=== PATIENT | female | born 1950 | race Caucasian/White ===

== ENCOUNTER 2023-11-11 23:12 | Emergency (ER) | payer MEDICARE ==
[~2023-11-11] VITALS: Ht 147.3 cm; Wt 75.0 kg
[~2023-11-11 23:12] MED LIST: ANAS1TAB10 PO; ASPI-611 PO; BISA-155 PO; CLOP75TA15 PO; CYAN100087 PO; DENO60DI SQ; EVOL140P3; GABA-532 PO; HYDR-4353 PO; LOSA25TA41 PO; METO50TA7 PO; PANT40SU2 PO
[2023-11-11 23:13] VITALS: TEMP 98.6
[2023-11-12 02:00] VITALS: PULSE 92; O2SAT 100
[2023-11-12] MEDS: acetaminophen 325mg tablet PO ONE (02:11)
[2023-11-12 03:00] VITALS: BP 126/60; RESP 16
== END 2023-11-12 05:37 | disposition home or self-care (01) ==
LOC: ER 23:13
DX: S82.092A Other fracture of left patella, initial encounter for closed fracture (principal); R51.9 Headache, unspecified; Z88.8 Allergy status to other drugs, medicaments and biological substances; Z79.82 Long term (current) use of aspirin; Z79.899 Other long term (current) drug therapy; W18.39XA Other fall on same level, initial encounter; Y93.89 Activity, other specified; Y92.89 Other specified places as the place of occurrence of the external cause; Y99.8 Other external cause status
CPT/HCPCS: 70450; 73564; 73590; 73610; 73700; 99285; J7030

== ENCOUNTER 2023-11-12 07:36 | Day surgery (SDC) | payer MEDICARE ==
[~2023-11-12] VITALS: Ht 147.3 cm; Wt 75.0 kg
[2023-11-12] MEDS ORDERED: normal saline 1,000 ML IV SCH (08:15)
[2023-11-12] MEDS ORDERED: diphenhydrAMINE 25mg capsule PO PRN (08:15)
[2023-11-12] MEDS ORDERED: sodium bicarbonate 1meq/ml syr 150 ML in dextrose 5%-water 1,000 ML IV SCH (08:15)
== END 2023-11-12 09:15 | disposition home or self-care (01) ==
LOC: SSTAY O 07:36
PROVIDERS: ATTEND Internal Medicine Cardiovascular Disease
DX: I25.118 Atherosclerotic heart disease of native coronary artery with other forms of angina pectoris (principal); Z53.8 Procedure and treatment not carried out for other reasons; I35.0 Nonrheumatic aortic (valve) stenosis; E78.5 Hyperlipidemia, unspecified; I10 Essential (primary) hypertension; C50.919 Malignant neoplasm of unspecified site of unspecified female breast; K21.9 Gastro-esophageal reflux disease without esophagitis; Z98.890 Other specified postprocedural states; Z79.899 Other long term (current) drug therapy; Z79.01 Long term (current) use of anticoagulants; Z88.8 Allergy status to other drugs, medicaments and biological substances; Z90.710 Acquired absence of both cervix and uterus
CPT/HCPCS: J7030

== ENCOUNTER 2023-11-29 07:59 | Day surgery (SDC) | payer MEDICARE ==
[2023-11-29] VITALS (11 sets, daily range): BP systolic 125–178; BP diastolic 45–91; PULSE 74–86; RESP 10–18; TEMP 98.2; O2SAT 94–99
[~2023-11-29] VITALS: Ht 147.3 cm; Wt 76.1 kg
[2023-11-29] MEDS ORDERED: diphenhydrAMINE 25mg capsule PO PRN (08:45)
[2023-11-29 09:29] LABS: BASOPHILS # (AUTO) 0.1 X10'3 (0-0.2); BASOPHILS % (AUTO) 0.5 % (0-1); EOSINOPHILS # (AUTO) 0.3 X10'3 (0-0.9); EOSINOPHILS % (AUTO) 3.1 % (0-6); HEMATOCRIT 36.6 % (35.0-45.0); HEMOGLOBIN 11.9 g/dl (12.0-16.0); LYMPHOCYTES # (AUTO) 1.6 X10'3 (1.1-4.8); LYMPHOCYTES % (AUTO) 16.9 % (21-51); MEAN CORPUSCULAR HEMOGLOBIN 28.7 PG (27.0-31.0); MEAN CORPUSCULAR HGB CONC 32.5 g/dL (33.0-36.5); MEAN CORPUSCULAR VOLUME 88.2 FL (78-98); MEAN PLATELET VOLUME 9.1 FL (7.4-10.4); MONOCYTES # (AUTO) 0.7 X10'3 (0-0.9); MONOCYTES % (AUTO) 7.3 % (2-12); NEUTROPHILS # (AUTO) 6.9 X10'3 (1.8-7.7); NEUTROPHILS % (AUTO) 72.2 % (42-75); PLATELET COUNT 342 X10'3 (140-440); RED BLOOD COUNT 4.14 X10'6 (4.20-5.60); RED CELL DISTRIBUTION WIDTH 14.7 % (11.5-14.5); WHITE BLOOD COUNT 9.6 X10'3 (4.5-11.0)
[2023-11-29 09:32] LABS: ALBUMIN 3.7 G/DL (3.4-5.0); ANION GAP 11 (8-16); BLOOD UREA NITROGEN 20 MG/DL (7-18); BUN/CREATININE RATIO 17.1 (10.0-20.0); CALCIUM 9.5 MG/DL (8.5-10.1); CHLORIDE 104 MMOL/L (99-107); CREATININE 1.17 MG/DL (0.40-0.90); GLUCOSE 117 MG/DL (70-104); MAGNESIUM 1.9 MG/DL (1.5-2.4); POTASSIUM 3.7 MMOL/L (3.5-5.1); PROTHROMBIN TIME 10.3 SECONDS (9.0-12.0); SODIUM 142 MMOL/L (135-145); TOTAL CARBON DIOXIDE 27.5 MMOL/L (24-32); eCRCL 27 ML/MIN; eGFR 45 ML/MIN
[2023-11-29] MEDS: hydrocortisone sod succ/PF 100mg/2ml inj. IV STA (09:57)
[2023-11-29] MEDS: LORazepam 0.5 MG tablet PO PRN (09:57)
[2023-11-29] MEDS: normal saline 1,000 ML IV SCH (09:59)
[2023-11-29] MEDS ORDERED: heparin 1,000unit/ml 10ml vial 10 ML ONE (10:22)
[2023-11-29] MEDS ORDERED: iohexol 350MG/ML 100ml bottle IV ONE ×2 (10:22→11:47)
[2023-11-29] MEDS ORDERED: fentaNYL/PF 50MCG/1 ML 2ML syringe ONE (10:22)
[2023-11-29] MEDS ORDERED: midazolam 1 mg/ML 2ml injection ONE ×3 (10:22→11:50)
[2023-11-29] MEDS ORDERED: verapamil 2.5 mg/ml inj IV ONE (10:22)
[2023-11-29] MEDS ORDERED: LIDOcaine 1% (10mg/ml) 2ml vial ONE (10:22)
[2023-11-29] MEDS ORDERED: iohexol 350 MG/ML 50ML vial IV ONE ×2 (10:22→11:33)
[2023-11-29] MEDS ORDERED: nitroGLYCERIN 500mcg/5mL D5W 0 ML IV ONE (10:23)
[2023-11-29] MEDS ORDERED: LIDOcaine 1% 30ml preserv. free vial ONE (10:23)
[2023-11-29] MEDS ORDERED: VITA1CAP PO (10:26)
[2023-11-29] MEDS ORDERED: ZOLE5INF7 IV (10:26)
[2023-11-29] MEDS ORDERED: LYR25C PO (10:26)
[2023-11-29] MEDS ORDERED: CHOL100046 PO (10:26)
[2023-11-29] MEDS ORDERED: NITR0.4T51 SL (10:26)
[2023-11-29] MEDS ORDERED: ATOR-2 PO (10:26)
[2023-11-29] MEDS ORDERED: CYAN100082 PO (10:26)
[2023-11-29] MEDS ORDERED: nitroGLYCERIN 500mcg/5mL D5W 5 ML IV ONE (11:52)
[2023-11-29] MEDS ORDERED: clopidogrel 300mg tablet ONE (12:22)
[2023-11-29] MEDS ORDERED: ondansetron/PF 4mg/2ml inj IV PRN (13:05)
[2023-11-29] MEDS: sodium bicarbonate 1meq/ml syr 150 ML in dextrose 5%-water 1,000 ML IV ONE (13:39)
[2023-11-29] MEDS: sucralfate 1 gm tablet PO ONE (13:56)
[2023-11-29] MEDS ORDERED: CLOP-32 PO (14:45)
== END 2023-11-29 16:00 | disposition home or self-care (01) ==
LOC: SSTAY O 07:59
PROVIDERS: ATTEND Internal Medicine Cardiovascular Disease
DX: I25.118 Atherosclerotic heart disease of native coronary artery with other forms of angina pectoris (principal); I10 Essential (primary) hypertension; E78.5 Hyperlipidemia, unspecified; K21.9 Gastro-esophageal reflux disease without esophagitis; Z86.73 Personal history of transient ischemic attack (TIA), and cerebral infarction without residual deficits; Z79.82 Long term (current) use of aspirin; Z79.899 Other long term (current) drug therapy; Z90.49 Acquired absence of other specified parts of digestive tract; Z90.89 Acquired absence of other organs; Z90.710 Acquired absence of both cervix and uterus; Z95.1 Presence of aortocoronary bypass graft; Z95.5 Presence of coronary angioplasty implant and graft; Z98.891 History of uterine scar from previous surgery; Z98.890 Other specified postprocedural states; Z88.8 Allergy status to other drugs, medicaments and biological substances
CPT/HCPCS: 36415; 80048; 83735; 85025; 85610; 92920; 93005; 93461; 99152; 99153; A6258; C1725; C1751; C1769; C1874; C1894; C9600; J1644; J1720; J2001; J2250; J3010; J3490; J7030; J7070; Q9967; Z7610

== ENCOUNTER 2024-09-18 07:43 | Day surgery (SDC) | payer MEDICARE ==
[~2024-09-18] VITALS: Ht 144.8 cm; Wt 70.3 kg
[2024-09-18] VITALS (12 sets, daily range): BP systolic 132–178; BP diastolic 49–79; PULSE 72–79; RESP 14–17; TEMP 98.8; O2SAT 91–97
[~2024-09-18 07:43] MED LIST changes: +ATOR-2 PO; +CHOL100046 PO; +CYAN100082 PO; -CYAN100087 PO; -DENO60DI SQ; -GABA-532 PO; -HYDR-4353 PO; +LYR25C PO; +NITR0.4T51 SL; +VITA1CAP PO; +ZOLE5INF7 IV
--- NOTE | 2024-09-18 08:12 | ELECTROCARDIOGRAPH REPORT ---
[facility] Test Date: 2024-09-18 Test Time: 08:10:02 Pat Name: AWAIS MICHELE Department: [facility] O Patient ID: [facility]-[id number] Room: Gender: F Committee Member: KONG : 1950 Requested By: MARITA SEVILLA Order Number: [id number] Reading MD: Dr. TYLOR Benjamin Measurements Intervals [place] Rate: 75 P: 48 DC: 145 QRS: -13 QRSD: 92 T: 139 QT: 407 QTc: 455 Interpretive Statements Sinus rhythm Probable left atrial enlargement LVH with secondary repolarization abnormality Electronically Signed On 09-18-2024 13:18:[address] TYLOR Benjamin Please click the below link to view image of tracing.
[2024-09-18 08:43] LABS: BASOPHILS # (AUTO) 0.1 X10'3 (0-0.2); BASOPHILS % (AUTO) 0.7 % (0-1); EOSINOPHILS # (AUTO) 0.1 X10'3 (0-0.9); EOSINOPHILS % (AUTO) 1.5 % (0-6); HEMATOCRIT 31.2 % (35.0-45.0); HEMOGLOBIN 10.4 g/dl (12.0-16.0); LYMPHOCYTES % (AUTO) 10.4 % (21-51); MEAN CORPUSCULAR HEMOGLOBIN 28.3 PG (27.0-31.0); MEAN CORPUSCULAR HGB CONC 33.2 g/dL (33.0-36.5); MEAN CORPUSCULAR VOLUME 85.3 FL (78-98); MEAN PLATELET VOLUME 9.2 FL (7.4-10.4); MONOCYTES # (AUTO) 0.7 X10'3 (0-0.9); MONOCYTES % (AUTO) 7.5 % (2-12); NEUTROPHILS # (AUTO) 7.8 X10'3 (1.8-7.7); NEUTROPHILS % (AUTO) 79.9 % (42-75); PLATELET COUNT 216 X10'3 (140-440); RED BLOOD COUNT 3.66 X10'6 (4.20-5.60); RED CELL DISTRIBUTION WIDTH 15.5 % (11.5-14.5); WHITE BLOOD COUNT 9.8 X10'3 (4.5-11.0)
[2024-09-18 08:55] LABS: ALBUMIN 2.9 G/DL (3.4-5.0); ANION GAP 8 (8-16); BLOOD UREA NITROGEN 12 MG/DL (7-18); BUN/CREATININE RATIO 15.2 (10.0-20.0); CALCIUM 8.3 MG/DL (8.5-10.1); CHLORIDE 106 MMOL/L (99-107); CREATININE 0.79 MG/DL (0.40-0.90); GLUCOSE 116 MG/DL (70-104); MAGNESIUM 1.7 MG/DL (1.5-2.4); POTASSIUM 3.6 MMOL/L (3.5-5.1); SODIUM 143 MMOL/L (135-145); TOTAL CARBON DIOXIDE 29.2 MMOL/L (24-32); eCRCL 37 ML/MIN; eGFR 71 ML/MIN
[2024-09-18 08:57] LABS: PROTHROMBIN TIME 10.3 SECONDS (9.0-12.0)
[2024-09-18] MEDS ORDERED: LYR75C PO (08:59)
[2024-09-18] MEDS ORDERED: METO-539 PO (08:59)
[2024-09-18] MEDS: normal saline 1,000 ML IV SCH (09:25)
[2024-09-18] MEDS: diphenhydrAMINE 25mg capsule PO PRN (09:25)
[2024-09-18] MEDS: sodium bicarbonate 1meq/ml syr 150 ML in dextrose 5%-water 1,000 ML IV ONE (09:28)
[2024-09-18] MEDS ORDERED: iohexol 350MG/ML 100ml bottle IV ONE (11:12)
[2024-09-18] MEDS ORDERED: LIDOcaine 1% 30ml preserv. free vial ONE (11:12)
[2024-09-18] MEDS ORDERED: heparin 1,000unit/ml 10ml vial 10 ML ONE (11:12)
[2024-09-18] MEDS ORDERED: midazolam 1 mg/ML 2ml injection ONE ×2 (11:12→11:41)
[2024-09-18] MEDS ORDERED: fentaNYL/PF 50MCG/1 ML 2ML syringe ONE (11:12)
[2024-09-18] MEDS ORDERED: iohexol 350 MG/ML 50ML vial IV ONE (11:12)
[2024-09-18] MEDS ORDERED: ondansetron/PF 4mg/2ml inj IV PRN (13:25)
[2024-09-18] MEDS ORDERED: HYDROcodone/acetaminophen 5mg/325mg tablet PO PRN (13:25)
[2024-09-18] MEDS ORDERED: HYDROcodone/acetaminophen 10/325mg tab PO PRN (13:25)
--- NOTE | 2024-09-18 14:50 | CARDIOLOGY REPORT ---
DATE OF SERVICE: 09/18/2024 DICTATING PHYSICIAN: LEVON ALICEA DO CARDIAC CATHETERIZATION REPORT REFERRING PHYSICIAN: Cee Elkins MD CLINICAL HISTORY: This 74-year-old woman has known severe aortic stenosis. There is also a significant history for coronary disease with previous bypass grafting and coronary stenting. PROCEDURES PERFORMED: * Right heart catheterization. * Left heart catheterization. * Left ventriculography. * Selective coronary arteriography. * Percutaneous arteriotomy closure (Mynx). * 45 minutes conscious sedation supervision. DESCRIPTION OF THE PROCEDURE: The patient was sedated with fentanyl and Versed. She was then prepared and draped in the usual manner. The right inguinal area was infiltrated with 1% lidocaine using a micropuncture set and a Seldinger technique. A 7-Palauan sheath was placed in the common femoral artery. 3000 units of heparin were given. Right heart catheterization was performed using a 7.5-Palauan [place] catheter. Cardiac output was determined using a thermodilution technique. Left heart catheterization and left ventriculography were performed using a double-lumen Justin catheter. Coronary arteriography was performed using 6-Palauan #4 Codey catheters. Opacification of a saphenous vein graft was accomplished using a 6-Palauan LCB catheter. A left internal mammary artery catheter was opacified using the 6-Palauan right Codey catheter. RESULTS: HEMODYNAMIC DATA: The mean right atrial pressure was 10 mmHg. Right ventricular pressure was 52/6 mmHg. Pulmonary arterial pressure was 49/21 mmHg. Pulmonary capillary wedge pressure was 21 mmHg. Left ventricular end diastolic pressure was 22 mmHg. There was a 50 mm gradient across the aortic valve. Cardiac output by thermodilution technique was 5.1 L/min. The short-form calculated aortic valve area was 0.72 cm2. LEFT VENTRICULOGRAM: The left ventriculogram was technically satisfactory. The estimated ejection fraction was 50%. Stents were visible in the proximal and distal right coronary, in the proximal half of the circumflex coronary, and proximally within the LAD. LEFT CORONARY ARTERY: The left main was a large unobstructed vessel, bifurcating into the left anterior descending and circumflex coronary arteries. The LAD was stented proximally. At its ostium, there was a 99% stenosis and the vessel was totally occluded just after the end of the stent. There was also about a 75% in-stent area of restenosis in the circumflex, which was otherwise composed of a medium to large obtuse marginal branch, a medium to large first posterolateral, and a very small-caliber second posterolateral. RIGHT CORONARY ARTERY: The right coronary was a medium to large main stem vessel. There was a long, medium-sized posterior descending branch and a hjxpfe-hx-wjvye posterolateral branch. The origin of the posterior descending was narrowed by about 95% and there was at least 50% narrowing of the ongoing right coronary. The mid right coronary also contained a 40% area of stenosis. There is a patent sequential PRATT graft running between the mid LAD and what is either a very pruned diagonal or perhaps an intermediate artery. There is a patent, smooth-appearing saphenous vein graft leading to what looks like a diagonal of the LAD which was small in caliber, but there was a larger medium-sized diagonal retrogradely filled. CONCLUSIONS: * Severe aortic stenosis. There is a 50 mm ubvs-cs-mhnk gradient and an estimated valve area of 0.72 cm2. * Moderate pulmonary hypertension. Pulmonary arterial pressure was 49/21 mmHg. * Severe coronary artery disease, principally manifested as follows: A. 99% in-stent stenosis at the ostium of the LAD with a 100% occlusion of the mid vessel. B. At least 75% in-stent stenosis at the origin of the circumflex coronary artery. C. 90%-95% stenosis at the origin of the RCA PDA with at least a 40%-50% narrowing of the ongoing right coronary. * Patent sequential internal mammary graft to the mid LAD and a very pruned diagonal or intermediate artery. There is also a patent unobstructed saphenous vein graft to a diagonal of the LAD. * Left ventricular function was nearly normal. The ejection fraction was estimated to be about 50%. PLAN: Discussion about whether to proceed to evaluation of coronary ischemia with a myocardial perfusion study to decide whether or not this patient will have surgery or TAVR with followup PCI. LEVON ALICEA DO TID: [id number] RECEIPT: [id number] ЮЛИЯ LANDA
== END 2024-09-18 15:50 | disposition home or self-care (01) ==
LOC: SSTAY O 07:43
PROVIDERS: ATTEND Internal Medicine Cardiovascular Disease
DX: I25.118 Atherosclerotic heart disease of native coronary artery with other forms of angina pectoris (principal); I27.20 Pulmonary hypertension, unspecified; I35.0 Nonrheumatic aortic (valve) stenosis; I25.2 Old myocardial infarction; E78.5 Hyperlipidemia, unspecified; K21.9 Gastro-esophageal reflux disease without esophagitis; C50.919 Malignant neoplasm of unspecified site of unspecified female breast; I25.10 Atherosclerotic heart disease of native coronary artery without angina pectoris; Z95.5 Presence of coronary angioplasty implant and graft; I10 Essential (primary) hypertension; Z90.710 Acquired absence of both cervix and uterus; Z98.890 Other specified postprocedural states; Z90.49 Acquired absence of other specified parts of digestive tract; Z79.899 Other long term (current) drug therapy
CPT/HCPCS: 36415; 80048; 83735; 85025; 85610; 93005; 93461; 99152; 99153; A6258; C1725; C1751; C1769; C1887; C1894; J1644; J2003; J2250; J3010; J3490; J7030; J7070; Q0163; Q9967; Z7610

== ENCOUNTER 2024-10-26 05:58 | Inpatient (IN) | payer MEDICARE ==
--- NOTE | 2024-10-20 11:52 | ELECTROCARDIOGRAPH REPORT ---
[facility] Test Date: 2024-10-20 Test Time: 11:48:19 Pat Name: AWAIS MICHELE Department: PRE/OP CARDIOLOGY Room: Gender: F Coder Operator: MAGDI : 1950 Requested By: CHRIS CHAN Order Number: [id number] Reading MD: Dr. Percy Bell Measurements Intervals [place] Rate: 76 P: 66 [place]: 150 QRS: -2 QRSD: 97 T: 157 QT: 384 QTc: 432 Interpretive Statements Sinus rhythm LVH with secondary repolarization abnormality Electronically Signed On 10-23-2024 20:51:[address] Percy Bell Please click the below link to view image of tracing.
[2024-10-20 12:23] LABS: BILIRUBIN,URINE SMALL (Neg); CLARITY,URINE CLEAR (Clear); COLOR,URINE YELLOW (Yellow); GLUCOSE, URINE NEGATIVE (Neg); KETONES,URINE NEGATIVE (Neg); LEUKOCYTE ESTERASE ,URINE NEGATIVE (Neg); NITRITES, URINE NEGATIVE (Neg); OCCULT BLOOD,URINE NEGATIVE (Neg); PH,URINE 5.5 (4.8-8.0); PROTEIN,URINE NEGATIVE (Neg); UROBILINOGEN,URINE 0.2 E.U/dL (0.2-1.0)
[2024-10-20 12:25] LABS: UA COLLECTION TYPE CLN CATCH MIDSTREAM
[2024-10-20 12:50] LABS: BASOPHILS % (AUTO) 0.8 % (0-1); EOSINOPHILS # (AUTO) 0.4 X10'3 (0-0.9); LYMPHOCYTES # (AUTO) 1.1 X10'3 (1.1-4.8); LYMPHOCYTES % (AUTO) 17.4 % (21-51); MEAN CORPUSCULAR HEMOGLOBIN 28.6 PG (27.0-31.0); MEAN CORPUSCULAR HGB CONC 33.4 g/dL (33.0-36.5); MEAN CORPUSCULAR VOLUME 85.4 FL (78-98); MEAN PLATELET VOLUME 9.1 FL (7.4-10.4); MONOCYTES # (AUTO) 0.8 X10'3 (0-0.9); MONOCYTES % (AUTO) 12.9 % (2-12); NEUTROPHILS # (AUTO) 3.8 X10'3 (1.8-7.7); NEUTROPHILS % (AUTO) 61.9 % (42-75); PRE OP PLATELET COUNT 261 X10'3 (140-440); PRE OP WHITE BLOOD COUNT 6.2 10'3 (4.8-10.8); RED BLOOD COUNT 3.63 X10'6 (4.20-5.60); RED CELL DISTRIBUTION WIDTH 15.6 % (11.5-14.5)
[2024-10-20 12:55] LABS: PRE OP HEMOGLOBIN 10.4 g/dL (12.0-16.0)
[2024-10-20 13:02] LABS: PRE OP PROTIME 10.3 SECONDS (9.0-12.0)
[2024-10-20 13:12] LABS: ALBUMIN 3.2 G/DL (3.4-5.0); ALBUMIN/GLOBULIN RATIO 0.8 (1.1-1.5); ALKALINE PHOSPHATASE 93 IU/L (46-116); BLOOD UREA NITROGEN 13 MG/DL (7-18); BUN/CREATININE RATIO 12.3 (10.0-20.0); CALCIUM 8.7 MG/DL (8.5-10.1); CHLORIDE 106 MMOL/L (99-107); CREATININE 1.06 MG/DL (0.40-0.90); PRE OP ALT 42 U/L (30-65); PRE OP ANION GAP 9 (8-16); PRE OP AST 43 U/L (10-37); PRE OP BILIRUB, TOTAL 0.6 MG/DL (0.0-1.0); PRE OP GLUCOSE 86 MG/DL (70-104); PRE OP SODIUM 143 MMOL/L (135-145); PRO BRAIN NATRIURETIC PEPTIDE 2963 PG/ML (0-450); TOTAL CARBON DIOXIDE 28.4 MMOL/L (24-32); eGFR 51 ML/MIN
[2024-10-20 13:18] LABS: PRE OP POTASSIUM 3.3 MMOL/L (3.4-5.1)
[2024-10-26] VITALS (33 sets, daily range): BP systolic 90–150; BP diastolic 32–70; PULSE 67–95; RESP 9–20; TEMP 96.8–97.9; O2SAT 91–100
[~2024-10-26] VITALS: Ht 144.8 cm; Wt 65.9 kg
[2024-10-26] MEDS: aspirin 325mg tablet PO ONE (05:30)
[~2024-10-26 05:58] MED LIST changes: +ALEN35TA11 PO; -ANAS1TAB10 PO; -BISA-155 PO; +DOCU-171 PO; -EVOL140P3; +EVOL140P3 SQ; -LOSA25TA41 PO; -LYR25C PO; +LYR75C PO; -METO50TA7 PO; +OSC500T PO; +PANT-47 PO; -PANT40SU2 PO; +PYRI-3 PO; -VITA1CAP PO; -ZOLE5INF7 IV; +famotidine 20mg tablet PO ONE; +ondansetron/PF 4mg/2ml inj IV PRN
[2024-10-26] MEDS ORDERED: protamine sulfate 10mg/ml inj. ONE (06:23)
[2024-10-26] MEDS: ringers solution, lacted 1,000 ML IV SCH ×2 (07:10→07:57)
[2024-10-26] MEDS ORDERED: labetalol 20mg/4ml (5mg/ml) syringe IV PRN ×2 (07:10→10:20)
[2024-10-26] MEDS ORDERED: fentaNYL/PF 50MCG/1 ML 2ML syringe IV PRN ×2 (07:10)
[2024-10-26] MEDS ORDERED: hydrALAZINE 20mg/ml inj. IV PRN ×2 (07:10→10:20)
[2024-10-26] MEDS ORDERED: ondansetron/PF 4mg/2ml inj IV PRN ×2 (07:10→10:20)
[2024-10-26] MEDS ORDERED: morphine 4 MG/ML inj SYRINge IV PRN (07:10)
[2024-10-26] MEDS ORDERED: morphine 2 MG/ML inj. syringe IV PRN (07:10)
[2024-10-26 07:46] LABS: ISTAT CREATININE 1.3 mg/dL (0.6-1.1); ISTAT HGB 10.5 g/dl (12.0-16.0); ISTAT IONIZED CALCIUM 1.25 mmol/L (1.03-1.32); ISTAT K 4.4 mmol/L (3.5-5.1)
[2024-10-26] MEDS: VANCOMYCIN 1GM 200ML H20 (PEG) 200 ML IV ONE (07:57)
[2024-10-26] MEDS: ceFAZolin 2gm/dext,iso 50mL 50 ML IV ONE (07:57)
[2024-10-26] MEDS: phenylephrine inj 50 MG in normal saline 250ml IV solN IV SCH (07:57)
[2024-10-26] MEDS: nitroPRUSSIDE (NIPRIDE) (200MCG/ML) 100ML Drip IV SCH (07:57)
[2024-10-26] MEDS ORDERED: iohexol 350MG/ML 100ml bottle IV ONE (08:18)
[2024-10-26] MEDS ORDERED: heparin 1,000 UNITS/NS 500ml 1,500 ML ONE (08:18)
[2024-10-26] MEDS ORDERED: LIDOcaine 1% 30ml preserv. free vial ONE (08:18)
[2024-10-26] MEDS ORDERED: nitroGLYCERIN 0.4mg SUBLingual tab SL PRN (08:45)
[2024-10-26] MEDS ORDERED: fentaNYL/PF 50MCG/1 ML 2ML syringe ONE (09:08)
[2024-10-26] MEDS ORDERED: MIDAZolam 1 MG/ML 5ML VIAL ONE ×2 (09:10→09:38)
[2024-10-26] MEDS ORDERED: labetalol 20mg/4ml (5mg/ml) syringe IV ONE (09:11)
[2024-10-26] MEDS ORDERED: heparin 1,000unit/ml 10ml vial 10 ML ONE (09:11)
[2024-10-26] MEDS ORDERED: iohexol 350 MG/ML 50ML vial IV ONE (09:28)
[2024-10-26] MEDS ORDERED: proCHLORperazine 10 MG/2 ml inj IV PRN (10:20)
[2024-10-26] MEDS ORDERED: potassium Cl 40MEQ/1/2NS 520ml 520 ML IV PRN (10:20)
[2024-10-26] MEDS ORDERED: potassium Cl 20mEq/100mL bag 100 ML IV PRN (10:20)
[2024-10-26] MEDS ORDERED: magnesium sulf-water 4G/100mL 100 ML IV PRN (10:20)
[2024-10-26] MEDS ORDERED: pantoprazole 40mg Tablet.DR PO PRN (10:20)
[2024-10-26] MEDS ORDERED: magnesium sulf-water 2g/50mL 50 ML IV PRN (10:20)
[2024-10-26] MEDS: normal saline 1000ml 1,000 ML IV SCH (10:20)
[2024-10-26] MEDS ORDERED: acetaminophen 325mg tablet PO PRN (10:20)
[2024-10-26] MEDS ORDERED: ALPRAZolam 0.25mg tablet PO PRN (10:20)
[2024-10-26] MEDS ORDERED: potassium CL 10mEq/100ml bag 100 ML IV PRN (10:20)
[2024-10-26] MEDS ORDERED: diphenhydrAMINE 25mg capsule PO PRN (10:20)
[2024-10-26] MEDS ORDERED: potassium Cl 40MEQ/270ML bag 250 ML IV PRN (10:20)
[2024-10-26] MEDS ORDERED: docusate sod 100mg capsule PO PRN (10:20)
[2024-10-26] MEDS ORDERED: potassium Cl 20 mEq SR tablet PO PRN (10:20)
--- NOTE | 2024-10-26 10:25 | OPERATIVE REPORT ---
Operative Report Providers to CC CC: Cee Elkins MD ~ Date of Procedure: Oct 26, 2024 Pre-Operative Diagnosis: Severe Aortic Stenosis Post-Operative Diagnosis SAME as PRE-Op Procedure Performed 1. Ultrasound-guided access, bilateral femoral vessels. 2. Bilateral femoral angiography. 3. Ascending aortography. 4. Temporary transvenous pacer to the RV apex. 5. Balloon Aortic Valvuloplasty with a 22mm balloon 6. Placement of a 26 mm Valentine S3 Ultra valve. Surgeon: Marita Bell MD Analytical Tech MD Dr. Rodney Martinez MD Anesthesiologist: Feroz Chung Type of Anesthesia: Other Findings: Severe Aortic Stenosis Complications None Prosthetics\Implants used: Valentine 26mm S3 Resilia Estimated Blood Loss: Minimal Specimen Removed: None Description of Procedure: The patient was brought to the laborer in a fasting state. They underwent MAC associated anesthesia. Ultrasound was used to guide access to the bilateral femoral vessels, 7-Palauan sheath, right femoral artery, 6-Palauan sheath, left femoral artery and right femoral vein. Bilateral femoral angiograms were obtained. Heparin was given to maintain an ACT over 250 seconds. A single perclose was placed on the left. We upsized to an 8-Palauan sheath. Two pigtail catheters placed in the ascending aorta. Ascending aortography done to determine the angle of deployment. Temporary transvenous pacer to the RV apex and confirmed capture. We upsized an 8-Palauan sheath to a 14-Palauan Valentine eSheath on the left. We crossed the aortic valve using a straight stiff exchange length Terumo wire supported by a 6-Palauan AL1 catheter. LV AO pressures were recorded. A Cook extra support wire was placed in the left ventricle. A 22mm balloon was brought into position and under rapid ventricular pacing was deployed. Subsequently, a 26 mm Valentine S3 Ultra valve was brought to position and under rapid right ventricular pacing was deployed. Post-procedure, there was no AI and no residual . Guidewires and balloons were removed at this time. The temporary pacer was removed. The 14-Palauan Valentine eSheath was removed and the perclose device deployed with residual leak so a second Perclose was tied with adequate hemostasis. The arterial sheath on the right was removed and a single Perclose tied. The venous sheath on the right was removed and a single Angioseal used for hemostasis. Protamine was given to reverse the effects of heparin. The patient was stable post-procedure. Good pulses in the legs and no evidence of bleeding, transferred to the PACU in stable condition. RESULTS: 1. Successful balloon aortic valvuloplasty with 22mm balloon. 2. Successful placement of a 26 mm Valentine S3 Ultra valve, left transfemoral approach, two perclose devices. Resume ASA 81mg QD. Cont plavix as below 3. CAD: Prior CABG, PRATT-LAD, SVG-OM. Recent PCI LMCA-LCx and PDA/PL. Cont DAPT 4. Hypertension: Resume if blood pressure remains stable 5. Acute on chronic diastolic heart failure, LVEDP 24mmHg. Patient will be watched in the recovery area until stable, then transferred to telemetry at that time. MARITA BELL MD Oct 26, 2024 10:25
--- NOTE | 2024-10-26 10:44 | ELECTROCARDIOGRAPH REPORT ---
[facility] Test Date: 2024-10-26 Test Time: 10:40:34 Pat Name: AWAIS MICHELE Department: [facility] IN Room: [place] [address] Gender: F Clinical Operations Manager: MAGDI : 1950 Requested By: MARITA BELL Order Number: [id number] Reading MD: Dr. Percy Bell Measurements Intervals [place] Rate: 84 P: 63 [place]: 179 QRS: -22 QRSD: 155 T: 147 QT: 472 QTc: 559 Interpretive Statements Sinus rhythm Atrial premature complex Left bundle branch block Electronically Signed On 10-29-2024 19:05:[address] Precy Bell Please click the below link to view image of tracing.
--- NOTE | 2024-10-26 14:53 | CARDIOLOGY REPORT ---
APPROVED REPORT EXAM: Focused, limited intraprocedural transthoracic 2D, spectral and color flow Doppler echocardiogr am during TAVR deployment. Patient Location: [employer] Blood Pressure: 113/80 mmHg Heart Rate: 105 bpm Rhythm: Sinus Tachycardia Indications Severe Aortic Stenosis 26 mm Valentine Josh 3 Ultra RESILIA Bioprosthetic TAVR 22mm TRUE balloon CABG x 2 2013 Stents x multiple 09/2024 Carrot Buncher: Mitul Elkins MD / Interventionalist: Carlyn Bell MD and Oneyda Meyer MD. / Surgeon: Oneyda GREEN MD. / Device rep: Ezequiel Valencia ELS Previous echo: 09/27/24 [facility] JT EF 60% ; DELMY 1.22 ; peak v 3.65 ; grad 53/30 ; LVOT 2.04 ; VHD m MR TR LEFT VENTRICLE LV appears mildly dilated with mild concentric hypertrophy. Overall systolic function appears normal. LVEF is 60%. RIGHT VENTRICLE RV appears mildly dilated with normal contractility. AORTIC VALVE Trileaflet (functionally bicuspid) AV appears heavily calcified with significant stenosis demonstrate d by reduced excursion and increased transvalvular and ascending aorta turbulance. DELMY is measured at 0.8 cmsq. Peak / mean gradien ts of 68/40 mmHG. Peak velocity is measured at 4.11 m/sec. No insuffic iency. BAV: 22mm TRUE balloon. POST DEPLOYMENT (LOOP: 38): 26 mm Valentine Josh 3 Ultra Resilia biopr osthetic TAVR appears well seated with normal function. No paravalvular leak detected. DELMY is measur ed at 3.75cmsq. Peak / mean gradients of 11 / 5 mmHG. Peak velocity is measured at 1.67 m/sec. MITRAL VALVE MV is thickened with mild annular calcification and no gross stenosis. Trace mitral regurgitation. TRICUSPID VALVE The tricuspid valve is normal in structure. Trace tricuspid regurgitation. PERICARDIUM There is no pericardial effusion. Other Information Study Quality: Adequate
[2024-10-26] MEDS: ceFAZolin 1GM/D5W- ADD-VANTAGE 50 ML IV SCH (16:13)
[2024-10-26] MEDS: sod chloride 0.9% 10ml flush syringe IV SCH (16:14)
[2024-10-26] MEDS: pantoprazole 40mg Tablet.DR PO SCH (20:56)
[2024-10-26] MEDS: vancomycin/NS 1 GM ADD-VANTAGE 250 ML IV SCH (20:56)
[2024-10-26] MEDS: pregabalin 75mg capsule PO SCH (20:56)
[2024-10-26] MEDS: docusate sod 100mg capsule PO SCH (20:57)
[2024-10-27 02:00] VITALS: BP 130/59; PULSE 75; RESP 16; TEMP 97.7; O2SAT 98
[2024-10-27 06:00] VITALS: BP 124/43; PULSE 69; RESP 19; TEMP 97.1; O2SAT 100
--- NOTE | 2024-10-27 06:54 | RADIOLOGY REPORT ---
EXAM: XR Chest, 1 View CLINICAL INDICATION: s/p TAVR TECHNIQUE: Frontal view of the chest. COMPARISON: DI CHEST,SINGLE VIEW on DOS: 09/27/24 FINDINGS: LUNGS AND PLEURAL SPACES: Unremarkable. No consolidation. No pneumothorax. HEART: Cardiomegaly without overt failure. MEDIASTINUM: Unremarkable. Normal mediastinal contour. BONES/JOINTS: Unremarkable. No acute fracture. OTHER FINDINGS: . IMPRESSION: Cardiomegaly without overt failure.
[2024-10-27 07:13] LABS: BASOPHILS % (AUTO) 0.1 % (0-1); EOSINOPHILS # (AUTO) 0.8 X10'3 (0-0.9); EOSINOPHILS % (AUTO) 4.3 % (0-6); HEMATOCRIT 30.5 % (35.0-45.0); LYMPHOCYTES # (AUTO) 2.4 X10'3 (1.1-4.8); LYMPHOCYTES % (AUTO) 13.5 % (21-51); MEAN CORPUSCULAR HEMOGLOBIN 28.5 PG (27.0-31.0); MEAN CORPUSCULAR HGB CONC 32.9 g/dL (33.0-36.5); MEAN CORPUSCULAR VOLUME 86.8 FL (78-98); MEAN PLATELET VOLUME 9.3 FL (7.4-10.4); MONOCYTES # (AUTO) 1.5 X10'3 (0-0.9); MONOCYTES % (AUTO) 8.6 % (2-12); NEUTROPHILS # (AUTO) 12.9 X10'3 (1.8-7.7); NEUTROPHILS % (AUTO) 73.5 % (42-75); PLATELET COUNT 273 X10'3 (140-440); RED BLOOD COUNT 3.51 X10'6 (4.20-5.60); RED CELL DISTRIBUTION WIDTH 15.5 % (11.5-14.5); WHITE BLOOD COUNT 17.5 X10'3 (4.5-11.0)
[2024-10-27 08:00] VITALS: RESP 25; O2SAT 100
[2024-10-27] MEDS ORDERED: aspirin 81mg, enteric-coated 1 TAB TABLET.DR PO SCH (08:00)
[2024-10-27] MEDS: pyridoxine 50mg tablet PO SCH (08:00)
[2024-10-27 08:15] LABS: ALANINE AMINOTRANSFERASE 32 U/L (12-78); ALBUMIN 3.2 G/DL (3.4-5.0); ALBUMIN/GLOBULIN RATIO 0.9 (1.1-1.5); ALKALINE PHOSPHATASE 86 IU/L (46-116); ANION GAP 13 (8-16); ASPARTATE AMINO TRANSFERASE 25 U/L (10-37); BILIRUBIN,TOTAL 0.3 MG/DL (0.1-1.0); BLOOD UREA NITROGEN 25 MG/DL (7-18); BUN/CREATININE RATIO 17.9 (10.0-20.0); CALCIUM 8.5 MG/DL (8.5-10.1); CHLORIDE 109 MMOL/L (99-107); GLUCOSE 108 MG/DL (70-104); MAGNESIUM 2.2 MG/DL (1.5-2.4); POTASSIUM 3.7 MMOL/L (3.5-5.1); PRO BRAIN NATRIURETIC PEPTIDE 5492 PG/ML (0-450); SODIUM 145 MMOL/L (135-145); TOTAL CARBON DIOXIDE 23.1 MMOL/L (24-32); TOTAL PROTEIN 6.9 G/DL (6.4-8.2); eCRCL 21 ML/MIN; eGFR 37 ML/MIN
[2024-10-27] MEDS: cholecalciferol (vitamin D3) 1,000 unit (25mcg) tablet PO SCH (08:17)
[2024-10-27] MEDS: clopidogrel 75mg tablet PO SCH (08:17)
[2024-10-27] MEDS: atorvastatin 20mg tablet PO SCH (08:17)
[2024-10-27] MEDS: aspirin 81mg tab.chew PO SCH (08:18)
[2024-10-27] MEDS: cyanocobalamin 500mcg tablet PO SCH (08:18)
[2024-10-27] MEDS: calcium carbonate 500mg tablet PO SCH (08:19)
--- NOTE | 2024-10-27 08:27 | ELECTROCARDIOGRAPH REPORT ---
[facility] Test Date: 2024-10-27 Test Time: 08:25:26 Pat Name: AWAIS MICHELE Department: [facility] Room: [place] [address] A Gender: F Perfect Binder Setter: LENI : 1950 Requested By: MARITA BELL Order Number: [id number] Reading MD: Dr. Percy Bell Measurements Intervals [place] Rate: 72 P: 63 [place]: 150 QRS: 2 QRSD: 94 T: 171 QT: 395 QTc: 433 Interpretive Statements Sinus rhythm LVH with secondary repolarization abnormality Electronically Signed On 10-29-2024 19:08:[address] Percy Bell Please click the below link to view image of tracing.
[2024-10-27 11:00] VITALS: BP 130/56; PULSE 72; RESP 20; TEMP 97.6; O2SAT 100
--- NOTE | 2024-10-27 14:13 | DISCHARGE SUMMARY ---
Discharge Summary Providers to CC ~ Discharge Summary Admission Diagnosis: Severe Aortic Stenosis Hospital Course DATE OF ADMISSION: 10/26/24 DATE OF DISCHARGE: 10/27/24 Discharge Diagnosis\Comment: Severe aortic stenosis status post TAVR CAD with prior CABG on dual antiplatelet therapy Hypertension Acute on chronic diastolic heart failure Operations\Procedures: 1. Ultrasound-guided access, bilateral femoral vessels. 2. Bilateral femoral angiography. 3. Ascending aortography. 4. Temporary transvenous pacer to the RV apex. 5. Balloon Aortic Valvuloplasty with a 22mm balloon 6. Placement of a 26 mm Valentine S3 Ultra valve. Consultants: No consultants Complications: No complications Condition on DC: Stable Continued Medications: Alendronate Sodium (Alendronate Sodium) 35 Mg Tablet 35 MG PO Q7D PATIENT TAKES ON MONDAYS Aspirin (Aspir 81) 81 Mg Tablet.dr 1 TAB PO DAILY, TAB Atorvastatin Calcium (Atorvastatin Calcium) 80 Mg Tablet 1 TAB PO DAILY Calcium Carbonate* (Oscal*) 500 Mg Tablet 3 TAB PO DAILY, TAB Cholecalciferol (Vitamin D3) (Vitamin D3) 25 Mcg (1000 Unit) Capsule 1 CAP PO DAILY for 30 Days, #30 CAP 0 Refills Clopidogrel Bisulfate (Plavix) 75 Mg Tablet 75 MG PO DAILY for ACUTE CORONARY SYNDROME/NSTEMI, TAB Do not stop medication unless instructed by prescriber. Cyanocobalamin (Vitamin B-12) (B-12) 1,000 Mcg Tablet.er 2 TAB PO DAILY for 30 Days, #30 TAB 0 Refills Docusate Sodium (Dulcolax Stool Softener) 100 Mg Capsule 1 CAP PO Q12H for 30 Days, #60 CAP 0 Refills Evolocumab (Repatha Sureclick) 140 Mg/Ml Pen.injctr 140 MG SQ Q2W PATIENT TAKES ON MONDAYS, NEXT SCHEDULED DOSE SHOULD BE THE 11/06/24 Nitroglycerin SL* (Nitrostat SL*) 0.4 Mg Tablet 1 TAB SL Q5MIN PRN for Chest pain Q5min PRNx3-call MD, #25 TAB Pantoprazole Sodium (PROTONIX tablet) 40 Mg Tablet.dr 40 MG PO BID, TAB.SR Pregabalin (LYRICA capsule) 75 Mg Capsule 1 CAP PO Q12H, CAP 0 Refills Pyridoxine Hcl (Vitamin B-6) 50 Mg Tablet 100 MG PO DAILY, TAB Discharge Summary: This is a 74-year-old female with past medical history significant for aortic stenosis, hypertension, hyperlipidemia, coronary artery disease with multiple stents and bypass surgery, breast cancer, hyperlipidemia, diverticulitis, GERD. She had recent PCI at [facility] two weeks ago. Underwent placement of a 26 mm Valentine S3 resilient valve via the left femoral approach. Tolerated the procedure well. Please see Dr. Lee Ann Bell's dictation for further details on the procedure. She was monitored overnight in the telemetry unit. Has remained hemodynamically stable. Up and ambulatory. No complaints of chest pain or pressure. No shortness a breath. No dizziness, lightheadedness or syncope. Postoperative testing included EKG that demonstrates sinus rhythm. Echocardiogram was completed that demonstrates preserved LVEF. Aortic valve with TAVR well seated. Aortic valve area 3.74 cm2 and mean gradient 7 mm of mercury. Peak velocity 1.73 m/sec. Trace perivalvular leak noted. Physical exam prior to discharge: General: Awake, alert, oriented. No apparent distress Neck: Supple. Normal range of motion. No JVD Respiratory: Lungs are clear to auscultation bilaterally. No respiratory distress. Chest: Normal shape and size. No accessory muscle use. Cardiovascular: Regular rate and rhythm. S1-S2. No murmur, gallop, rub. Gastrointestinal: Abdomen is soft. Nontender to palpation. Bowel sounds present. Extremities: No lower extremity edema, cyanosis or clubbing. The left femoral site has blood on the dressing. No hematoma or swelling. Dorsalis pedis pulses plus two bilaterally. Neurologic: Alert and oriented x4. Nonfocal Psychiatric: Normal mood and affect. Skin: Normal color. Warm and dry. Plan: Patient is being discharged home in stable condition. She will continue dual antiplatelet therapy given recent PCI. Follow up with her primary mat making machine tender as scheduled. Activity restrictions reviewed. *Problems/Diagnosis: (1) Severe aortic stenosis (2) Coronary artery disease Assessment & Plan: Recent PCI at [facility]. Continue Plavix 75 mg daily and aspirin 81 mg daily. (3) Hypertension Assessment & Plan: Controlled (4) Acute on chronic diastolic heart failure Assessment & Plan: LVEDP 24 mm of mercury. No current shortness breath Total Time Spent on D/C: > 30 Minutes Counseling Services Smoking & Tobacco Cessation: N/A INDERJIT SAVAGE NP Oct 27, 2024 14:13
--- NOTE | 2024-10-29 16:56 | CARDIOLOGY REPORT ---
APPROVED REPORT EXAM: Limited 2D, Doppler, and color-flow Echocardiogram. Patient Location: [facility] Blood Pressure: 130/59 mmHg Heart Rate: 82 bpm Rhythm: NSR Indications ONE DAY FOLLOW-UP TAVR 26 mm Valentine Josh 3 Ultra RESILIA Bioprosthetic TAVR Stock Shipper: Mitul Elkins MD. Previous echo 10/26/24 [facility] EF 60%; DELMY 3.75; Peak v 1.67; Grad 03/28 2D Dimensions LVOT Diameter 2.60 (1.8-2.4cm) IVC 17.17 mm Aortic Valve AoV Peak Estuardo. 172.7 cm/s AoV VTI 38.3 cm AO Peak GR. 11.9 mmHg AO Mean GR. 7 mmHg LVOT VTI 26.94 cm LVOT Peak Estuardo. 123.7 cm/s DELMY(VTI)/BSA 3.74 cm2/m2 DELMY (VTI) 3.74 cm2 Mitral Valve MV Peak Gr. 7 mmHg MV PHT 68 ms MVA (PHT) 3.24 cm2 MV [id number] cm/s Tricuspid Valve TR P. Velocity 261 cm/s RAP ESTIMATE 10 mmHg TR Peak Gr. 27 mmHg RVSP 37 mmHg LEFT VENTRICLE LV appears mildly dilated with mild concentric hypertrophy. Overall systolic function appears normal. LVEF is 60%. RIGHT VENTRICLE RV appears mildly dilated with normal contractility. RVSP is estimated at 37 mmHG. AORTIC VALVE 26 mm Valentine Josh 3 Ultra RESILIA Bioprosthetic TAVR appears well seated. DELMY of 3.74 cmsq with a peak/mean gradient of 12/7 mmHG and a peak velocity of 1.73 m/s. Trace parvalvular leak noted at 7 oc lock PSAX TTE. MITRAL VALVE MV is thickened with mild annular calcification and no gross stenosis. Trace mitral regurgitation. TRICUSPID VALVE The tricuspid valve is normal in structure. Trace tricuspid regurgitation. GREAT VESSELS The IVC is normal in size and collapses >50% with inspiration. PERICARDIUM There is no pericardial effusion. Other Information Study Quality: Adequate Conclusion LV appears mildly dilated with mild concentric hypertrophy. Overall systolic function appears normal. LVEF is 60%. RV appears mildly dilated with normal contractility. RVSP is estimated at 37 mmHG. 26 mm Valentine Josh 3 Ultra RESILIA Bioprosthetic TAVR appears well seated. DELMY of 3.74 cmsq with a peak/mean gradient of 12/7 mmHG and a peak velocity of 1.73 m/s. Trace parvalvular leak noted at 7 oc lock PSAX TTE. MV is thickened with mild annular calcification and no gross stenosis. Trace mitral regurgitation. The tricuspid valve is normal in structure. Trace tricuspid regurgitation. There is no pericardial effusion.
== END 2024-10-27 15:55 | disposition home or self-care (01) | DRG 266 ==
LOC: PAS IN 05:58 → PCU 3S 12:51
PROVIDERS: ADMIT Internal Medicine Cardiovascular Disease; ATTEND Internal Medicine Cardiovascular Disease
PROC: B41D1ZZ Fluoroscopy of Aorta and Bilateral Lower Extremity Arteries using Low Osmolar Contrast (ICD-10-PCS; 2024-10-26)
PROC: 03HY32Z Insertion of Monitoring Device into Upper Artery, Percutaneous Approach (ICD-10-PCS; 2024-10-26)
PROC: 02RF38Z Replacement of Aortic Valve with Zooplastic Tissue, Percutaneous Approach (ICD-10-PCS; principal; 2024-10-26 09:03)
DX: I35.0 Nonrheumatic aortic (valve) stenosis (principal); Z00.6 Encounter for examination for normal comparison and control in clinical research program; I50.33 Acute on chronic diastolic (congestive) heart failure; I11.0 Hypertensive heart disease with heart failure; I25.10 Atherosclerotic heart disease of native coronary artery without angina pectoris; K21.9 Gastro-esophageal reflux disease without esophagitis; E78.5 Hyperlipidemia, unspecified; Z95.5 Presence of coronary angioplasty implant and graft; Z95.1 Presence of aortocoronary bypass graft; Z85.3 Personal history of malignant neoplasm of breast; Z88.1 Allergy status to other antibiotic agents; Z88.5 Allergy status to narcotic agent; Z88.8 Allergy status to other drugs, medicaments and biological substances
CPT/HCPCS: 33361; 36415; 71045; 76937; 80047; 80053; 81003; 82948; 83735; 83880; 85025; 85347; 85610; 85730; 86885; 86900; 86901; 86920; 93005; 93308; A4615; A6258; A6449; C1725; C1756; C1760; C1769; C1894; G0378; J0690; J1644; J2003; J2250; J2371; J2720; J3010; J3370; J3372; J3490; J7030; J7040; J7050; J7120; P9016; Q9967

== ENCOUNTER 2024-11-22 14:25 | Outpatient (CLI) | payer MEDICARE ==
[~2024-11-22 14:25] MED LIST changes: -famotidine 20mg tablet PO ONE; -ondansetron/PF 4mg/2ml inj IV PRN
--- NOTE | 2024-11-22 17:11 | CARDIOLOGY REPORT ---
APPROVED REPORT EXAM: Comprehensive 2D, Doppler, and color-flow Echocardiogram. Patient Location: OUT-PATIENT Blood Pressure: 140/62 mmHg Heart Rate: 79 bpm Rhythm: NSR Indications 1 month follow up TAVR 26 mm Valentine Josh 3 Ultra RESILIA Bioprosthetic TAVR 10/26/24 Winter Sports Manager is Mitul Elkins MD Previous echo 10/27/24 [facility] 60% EF ; DELMY 3.74 ; grad 12/7 ; peak v 1.73 2D Dimensions LA Diam4.7 cm IVSd 1.2 (0.7-1.1cm) LVDd 4.4 cm PWd 1.2 (0.7-1.1cm) IVSs 1.7 (0.8-1.2cm) LVDs 3.1 (2.5-4.0cm) PWs 1.6 (0.8-1.2cm) LVOT Diameter 2.55 (1.8-2.4cm) LVEF(%) 56.4 (>50%) IVC 14.80 mm FS (%) 29.3 % SV 48.5 ml M-Mode Dimensions MV EPSS 1.4 (<0.5cm) Aortic Valve AoV Peak Estuardo. 220.5 cm/s AoV VTI 47.2 cm AO Peak GR. 19.5 mmHg AO Mean GR. 12 mmHg LVOT VTI 32.37 cm LVOT Peak Estuardo. 160.3 cm/s DELMY (VTI) 3.61 cm2 Mitral Valve MV E Velocity 97.7 cm/s MV DECEL TIME 200 ms MV A Velocity 91.4 cm/s MV PHT 55 ms E/A Ratio 1.1 MVA (PHT) 4.04 cm2 TDI E/Medial E' 17.0 Tricuspid Valve TR P. Velocity 249 cm/s RAP ESTIMATE 10 mmHg TR Peak Gr. 25 mmHg RVSP 35 mmHg Pulmonary Vein S2 Velocity 43.96 cm/s PVa [id number] msec LEFT VENTRICLE Normal LV size and function. Mild concentric hypertrophy. Overall LVEF is 55-60%. RIGHT VENTRICLE RV appears mildly dilated with normal contractility. RVSP is estimated at 35 mmHG. ATRIA Left atrium is moderately dilated. AORTIC VALVE 26 mm Valentine Josh 3 Ultra RESILIA Bioprosthetic TAVR appears well seated. DELMY is measured at 3.61 cmsq. Peak/mean gradients of 20/12 mmHG. Peak velocity is measured at 2.21 m/sec. Trivial paravalvula r leak noted at 12 oclock PSAX TTE. MITRAL VALVE MV is thickened with mild annular calcification and no stenosis. Trace mitral regurgitation. TRICUSPID VALVE The tricuspid valve is normal in structure. Trace tricuspid regurgitation. PULMONIC VALVE The pulmonary valve is normal in structure. Trace pulmonic regurgitation. GREAT VESSELS The aortic root is normal in size. The IVC is normal in size and collapses >50% with inspiration. PERICARDIUM There is no pericardial effusion. Other Information Study Quality: Adequate Conclusion Overall LVEF is 55-60%. Normal LV size and function. Mild concentric hypertrophy. RV appears mildly dilated with normal contractility. RVSP is estimated at 35 mmHG. Trace mitral regurgitation. Trace tricuspid regurgitation. There is no pericardial effusion.
== END 2024-11-22 23:59 | disposition home or self-care (01) ==
LOC: RAD 14:25
PROVIDERS: ATTEND Internal Medicine Cardiovascular Disease
DX: Z48.812 Encounter for surgical aftercare following surgery on the circulatory system (principal); Z95.2 Presence of prosthetic heart valve; I51.7 Cardiomegaly; I34.81 Nonrheumatic mitral (valve) annulus calcification
CPT/HCPCS: 93306

== ENCOUNTER 2025-02-19 08:09 | Day surgery (SDC) | payer MEDICARE ==
[2025-02-19] VITALS (10 sets, daily range): BP systolic 143–174; BP diastolic 56–77; PULSE 73–84; RESP 11–21; TEMP 98; O2SAT 93–98
[~2025-02-19] VITALS: Ht 144.8 cm; Wt 70.9 kg
--- NOTE | 2025-02-19 08:48 | ELECTROCARDIOGRAPH REPORT ---
[facility] Test Date: 2025-02-19 Test Time: 08:45:06 Pat Name: AWAIS MICHELE Department: [facility] Patient ID: [facility]-[id number] Room: Gender: F Oliving Machine Operator: KONG : 1950 Requested By: LEVON ALICEA Order Number: [id number] Reading MD: Dr. TYLOR Benjamin Measurements Intervals [place] Rate: 79 P: 47 AR: 158 QRS: -4 QRSD: 115 T: 137 QT: 407 QTc: 467 Interpretive Statements Sinus rhythm Ventricular premature complex Probable left atrial enlargement LVH with secondary repolarization abnormality Electronically Signed On 02-19-2025 17:11:[address] TYLOR Benjamin Please click the below link to view image of tracing.
[2025-02-19] MEDS ORDERED: LOSA25TA41 PO (08:59)
[2025-02-19 09:22] LABS: MEAN PLATELET VOLUME 9.5 FL (7.4-10.4); RED CELL DISTRIBUTION WIDTH 16.1 % (11.5-14.5)
[2025-02-19 09:30] LABS: CREATININE 0.92 MG/DL (0.40-0.90); INR 1.0 INR; TOTAL CARBON DIOXIDE 30.7 MMOL/L (24-32); eCRCL 32 ML/MIN; eGFR 60 ML/MIN
[2025-02-19] MEDS: hydrocortisone sod succ/PF 100mg/2ml inj. IV ONE (10:08)
[2025-02-19] MEDS: sodium bicarbonate 1meq/ml syr 150 ML in dextrose 5%-water 1,000 ML IV ONE (10:12)
[2025-02-19] MEDS ORDERED: midazolam 1 mg/ML 2ml injection ONE ×2 (13:31→13:48)
[2025-02-19] MEDS ORDERED: iohexol 350 MG/ML 50ML vial IV ONE ×2 (13:31→14:06)
[2025-02-19] MEDS ORDERED: heparin 1,000unit/ml 10ml vial 10 ML ONE (13:31)
[2025-02-19] MEDS ORDERED: fentaNYL/PF 50MCG/1 ML 2ML syringe ONE (13:31)
[2025-02-19] MEDS ORDERED: LIDOcaine 1% 30ml preserv. free vial ONE (13:47)
[2025-02-19] MEDS ORDERED: HYDROcodone/acetaminophen 5mg/325mg tablet PO PRN (15:25)
[2025-02-19] MEDS ORDERED: ondansetron/PF 4mg/2ml inj IV PRN (15:25)
[2025-02-19] MEDS ORDERED: HYDROcodone/acetaminophen 10/325mg tab PO PRN (15:25)
--- NOTE | 2025-02-19 18:21 | CARDIOLOGY REPORT ---
DATE OF SERVICE: 02/19/2025 DICTATING PHYSICIAN: LEVON ALICEA DO CARDIAC CATHETERIZATION REPORT REFERRING PHYSICIAN: Cee Elkins MD CLINICAL HISTORY: This 74-year-old woman is status post multiple stents placements over the years with most recently receiving a stent near the origin of the circumflex coronary in 09/2024. She had TAVR for severe aortic stenosis in 10/2024. The patient is status post CABG in 2013, receiving a PRATT to the OMB and a saphenous vein graft to a small LAD. She is complaining of angina with exertional dyspnea, plus orthopnea, and some PND. PROCEDURES PERFORMED: * Left heart catheterization. * Left ventriculography. * Selective coronary arteriography. * Selective opacification of a saphenous vein graft. * Selective opacification of left internal mammary graft. * 30 minutes of conscious sedation supervision. DESCRIPTION OF PROCEDURE: The patient was sedated with fentanyl and Versed. She was then prepared and draped in the usual manner. Using a micropuncture set and a Seldinger technique, a 7-Palauan sheath was placed in the right femoral artery, in the common femoral, but very slightly above the profunda femoris artery. 3000 units of heparin were given. Left heart catheterization and left ventriculography were performed using a 6-Palauan pigtail catheter. CORONARY ARTERIOGRAPHY: The coronary arteriograms were performed using 6-Palauan #4 left and right Codey catheters. A PRATT to the circumflex coronary system was opacified using the right Codey catheter. A saphenous graft to the LAD was opacified using the 6-Palauan #4 right Codey catheter. The arterial puncture site hemostasis was achieved using direct compression. RESULTS: HEMODYNAMIC DATA: The left ventricular end-diastolic pressure was 24 mmHg. There was about a 20 mm gradient across the bioprosthetic aortic valve. LEFT VENTRICULOGRAM: The left ventriculogram was technically satisfactory. The ejection fraction was about 40%. There were multiple stents placed in the distal right coronary, in the circumflex coronary, and in the proximal LAD. CORONARY ARTERIOGRAPHY: The coronary arteriograms are technically satisfactory. The patient had a right dominant system. LEFT MAIN CORONARY ARTERY: The left main is a large unobstructed vessel which appeared to bifurcate into the LAD and circumflex coronary arteries. The LAD was totally occluded at its origin. The circumflex appeared to be widely patent. There was a small patent very proximal first OM and a medium-sized inferior obtuse marginal branch. RIGHT CORONARY ARTERY: The right coronary artery was a large main stem vessel. There was a large posterior descending branch and a medium to large posterolateral branch. There may have been as much as a 50% narrowing at the origin of the ongoing right coronary just after the takeoff of the posterior descending branch. SELECTIVE OPACIFICATION OF BYPASS GRAFTS: There is a patent saphenous vein graft leading to what looks like the distal left anterior descending LAD with retrograde filling of a small to medium-sized mid diagonal. There is a patent left internal mammary going to an OMB vessel. Both grafted vessels are patent and unobstructed beyong the distal anastomosis. CONCLUSIONS: 1. Old obstructive coronary disease manifested as follows: A. 100% proximal LAD. B. No more than a 50% narrowing at the origin of the ongoing far right coronary beyond which there is a medium-sized posterolateral branch. 2. Bypass graft status is as follows: The PRATT to OMB. A saphenous vein graft is not leading to the LAD is also patent and there is retrograde filling of a small to medium sized mid diagonal. 3. Left ventricular function is mild to moderately reduced. The estimated LVEF was 40%. 4. The bioprosthetic valve placed transcutaneously in 10/2024 appears to be functioning normally, although there is about an 18-20 mm peak gradient across the valve. RECOMMENDATIONS: Recommendation is ongoing medical therapy. I do not think that there is anything here that is likely to benefit from PCI. LEVON ALICEA DO TID: [id number] RECEIPT: [id number] CANDIE/DUC MTDD
== END 2025-02-19 19:00 | disposition home or self-care (01) ==
LOC: SSTAY O 08:09
PROVIDERS: ATTEND Internal Medicine Cardiovascular Disease
DX: I25.118 Atherosclerotic heart disease of native coronary artery with other forms of angina pectoris (principal); I49.3 Ventricular premature depolarization; I10 Essential (primary) hypertension; E78.5 Hyperlipidemia, unspecified; K21.9 Gastro-esophageal reflux disease without esophagitis; Z79.82 Long term (current) use of aspirin; Z79.891 Long term (current) use of opiate analgesic; Z79.899 Other long term (current) drug therapy; Z90.710 Acquired absence of both cervix and uterus; Z90.89 Acquired absence of other organs; Z95.1 Presence of aortocoronary bypass graft; Z98.890 Other specified postprocedural states; Z88.8 Allergy status to other drugs, medicaments and biological substances
CPT/HCPCS: 36415; 80048; 83735; 85025; 85610; 93005; 93459; 99152; A6258; C1725; C1894; J1644; J1720; J2003; J2250; J3010; J3490; J7030; J7070; Q0163; Q9967; Z7610

== ENCOUNTER 2025-03-01 09:36 | Outpatient (CLI) | payer MEDICARE ==
[~2025-03-01 09:36] MED LIST changes: +LOSA25TA41 PO
--- NOTE | 2025-03-01 15:40 | RADIOLOGY REPORT ---
EXAM: DI CHEST,TWO VIEWS HISTORY: AV STENOSIS,SOB,CAROTID STENOSIS COMPARISON: Chest x-ray dated 10/27/2024 TECHNIQUE: Frontal and lateral views of the chest were performed. FINDINGS: There is new blunting of the left costophrenic angle. No pneumothorax or consolidative infiltrates. The heart is enlarged. Postoperative changes of CABG, TAVR, left axillary dissection, and cholecystectomy are re-identified. No fractures are identified about the bony thorax. IMPRESSION: 1. New blunting of the left costophrenic angle consistent with small pleural effusion. 2. The right lung is clear. 3. Cardiomegaly and postoperative changes of the heart.
--- NOTE | 2025-03-02 02:44 | CONSULTATION ---
DATE OF CONSULTATION: 03/01/2025 DICTATING PHYSICIAN: Cash Meyer M.D. CARDIOVASCULAR CONSULTATION REFERRING PHYSICIAN: Dr. Elkins. Dear Dr. Elkins, we had the pleasure of seeing the patient here in the TAVR clinic for followup. I asked her to come see me as she had progressive worsening shortness of breath and dyspnea on exertion and had a recent hospitalization where repeat echocardiogram and heart catheterization was done by Dr. Martinez. I had the opportunity to review her angiograms and her echocardiogram. As you recall, she had a transfemoral transcatheter aortic valve replacement done at [facility] on 10/26/2024. At that time, she had a 26 mm Valentine S3 ultra valve placed and actually did well. She had a functional bicuspid valve at that time and had previous PCI from her left main to her circumflex at [facility]. In followup, she states that she has had progressive worsening shortness of breath and dyspnea on exertion. She had undergone repeat angiographic imaging of her coronary anatomy showing widely patent stents and bypass grafts without the need for further intervention. Her echocardiogram has shown her overall ejection fraction around 45% with a well-seated aortic valve, low mean gradient, and no paravalvular leak. No pericardial effusion and no other major valve findings. Given her progressive shortness of breath, we asked to see her here today. PHYSICAL EXAMINATION: VITAL SIGNS: She is 4 feet 9, 70 kilos. Heart rate 76. Blood pressure 159/71. She is afebrile. GENERAL: In general, she is well appearing, in no apparent distress at rest. She can talk in full sentences. NECK: She has a normal jugular venous pressure. CARDIOVASCULAR: Her cardiovascular exam is regular. She has no audible rub, murmur or gallop. Her PMI is normal in size and nondisplaced. LUNGS: Her lungs are clear. She has slight decreased breath sounds at the left base, but no wheezing or rhonchi are noted. ABDOMEN: She has her ostomy bag and a small hernia at that site. EXTREMITIES: Her lower extremities have good pulses and no edema by my exam. LABORATORY TESTS AND EVALUATION: Laboratory test and evaluation as stated. She also had a chest x-ray today showing no evidence of infiltrate, heart failure, and a small left pleural effusion just at the costophrenic angle. ASSESSMENT AND PLAN: The patient remains short of breath without a determined etiology at this time. Her chest x-ray has no major findings at all. Her echocardiogram with a well-seated valve and ejection fraction about 45% to 50%. She does not readily appear volume overloaded here today. We have the following plan for her: * Clearly, when she tries to bend over to tie her shoes, she has some chest discomfort relieved by Mylanta. This is likely related to acid reflux and she admits this. She is on a proton pump inhibitor at this time and will work with Maalox or Mylanta to help this situation. * She has a well-seated transcatheter valve and is on appropriate medical therapy at this time. Her mitral valve does not appear to be leaking in any substantial way and is not likely the etiology of her shortness of breath. * Chest x-ray shows no acute findings, just a slight effusion on the left, but I do not believe this is the cause of her symptomatology. * She has patent grafts and no need for further stenting. * She did have a history of pulmonary hypertension as seen on her right heart catheterization in 08/2024 and this may be partially contributing. * Perhaps another workup for a pulmonary etiology would be needed as well. * She has limited funds and limited ability to go to cardiac rehab and will likely not be able to do this in any ready way, but she will do the best she can to remain mobile at home. * Given her overall ejection fraction was at 45%, we were able to obtain at least a 2-week supply of Jardiance 10 mg a day to be started in addition to her other medications and she is working on getting funding for this for right now. I tried to avoid just Lasix therapy. She did not appear markedly overloaded and my hope was that Jardiance may help her feel a bit better while she undergoes further pulmonary workup. Dr. Elkins, I thank you for allowing the opportunity to care for this patient. I ask to bring her back today so I could formally examine her and make sure there were no major findings contributing to her shortness of breath. She will continue to follow up through your office and any further workup rangel deem necessary we would appreciate that greatly. If we can be of any further assistance with this or any patient in the future, please do not hesitate to call. Cash Meyer M.D. TID: [id number] RECEIPT: [id number] JOY/BAUTISTA
== END 2025-03-01 23:59 | disposition home or self-care (01) ==
LOC: TAVR 09:36
PROVIDERS: ATTEND Internal Medicine Cardiovascular Disease
DX: I51.7 Cardiomegaly (principal); Z48.812 Encounter for surgical aftercare following surgery on the circulatory system; Z95.2 Presence of prosthetic heart valve; Z98.890 Other specified postprocedural states
CPT/HCPCS: 71046